=== PATIENT | female | born 2000 | race Caucasian/White ===

== ENCOUNTER 2021-04-21 08:06 | Inpatient (IN) ==
[2021-04-21] MEDS ORDERED: Naloxone 0.4 MG/ML INJ IVP PRN ×2 (08:19→08:48)
[2021-04-21] MEDS ORDERED: Ondansetron 4 MG/2 ML VIAL IVP PRN ×2 (08:19→08:48)
[2021-04-21] MEDS ORDERED: Lidocaine 1% 20 ML MDV ID PRN (08:19)
[2021-04-21] MEDS ORDERED: Metoclopramide 10 MG/2 ML VIAL IVP PRN (08:19)
[2021-04-21] MEDS ORDERED: *HR* Nalbuphine 10 MG/ML AMPUL IV PRN (08:19)
[2021-04-21] MEDS ORDERED: Azithromycin 500 MG in 0.9 % Sodium Chloride 250 ML IVPB ONE (08:19)
[2021-04-21] MEDS ORDERED: Famotidine 20 MG/2 ML VIAL IVP PRN (08:19)
[2021-04-21] MEDS ORDERED: miSOPROStoL 25 MCG TABLET PO PRN (08:19)
[2021-04-21] MEDS ORDERED: Ringers Solution, Lactated 1,000 ML IVC SCH (08:30)
[2021-04-21] MEDS ORDERED: Oxytocin 20 units/ LR 1000 mL 20 UNIT/1,000 ML BAG IVC SCH (08:30)
[2021-04-21] MEDS ORDERED: Ropivacaine/PF 0.2% 20 ML VIAL EP ONE (08:48)
[2021-04-21] MEDS ORDERED: EPHEDrine 50 MG/ML VIAL IVP PRN (08:48)
[2021-04-21] MEDS ORDERED: Epidural Premix (fent/bupiv) 110 ML EP SCH (09:00)
[2021-04-21 09:23] LABS: Basophils % 0.3 %; Eosinophils # 0.2 K/mcL (0.0-0.6); Eosinophils % 1.9 %; Hematocrit 31.9 % (35.3-44.9); Hemoglobin 9.9 g/dL (11.5-15.4); Immature Granulocytes % 0.7 % (0-4); Lymphocytes # 2.1 K/mcL (0.6-4.6); Lymphocytes % 20.4 %; Mean Corpuscular Hemoglobin 26.4 pg (28.0-33.3); Mean Corpuscular Volume 85.1 fL (83.0-100.0); Mean Platelet Volume 9.6 fL (9.4-12.4); Monocytes # 0.7 K/mcL (0.0-1.3); Monocytes % 6.7 %; Neutrophils # 7.3 K/mcL (1.6-8.9); Platelet Count 295 K/mcL (140-400); Red Blood Count 3.75 M/mcL (3.82-4.97); Red Cell Distribution Width 15.6 % (11.5-14.5); White Blood Count 10.4 K/mcL (4.3-11.1)
[2021-04-21 09:29] LABS: Amphetamine Screen,Urine Negative ng/mL (Cutoff=1000); Barbiturate Screen,Urine Negative ng/mL (Cutoff=200); Benzodiazepines Screen,Urine Negative ng/mL (Cutoff=200); Cannabinoid Screen,Urine Negative ng/mL (Cutoff = 50); Cocaine Screen,Urine Negative ng/mL (Cutoff= 300); Opiate Screen,Urine Negative ng/mL (Cutoff=300); Phencyclidine Screen,Urine Negative ng/mL (Cutoff=25)
[2021-04-21 09:52] LABS: Influenza A PCR Negative (Negative); Influenza B PCR Negative (Negative); Resp. Syncytial Virus PCR Negative (Negative)
[2021-04-21 09:53] LABS: SARS-CoV-2 by PCR (In House) Negative (Negative)
[2021-04-21] MEDS ORDERED: Ropivacaine/PF 0.2% 20 ML VIAL ONE (17:46)
[2021-04-21] MEDS ORDERED: Methylergonovine 0.2 MG/ML AMPUL IM ONE (23:21)
[2021-04-22] MEDS ORDERED: Acetaminophen 325 MG TABLET PO PRN (01:33)
[2021-04-22] MEDS ORDERED: Benzocaine/Menthol 56 GM AEROSOL SPRAY TP PRN (01:33)
[2021-04-22] MEDS ORDERED: Oxytocin 20 units/ LR 1000 mL 20 UNIT/1,000 ML BAG IVC SCH (01:33)
[2021-04-22] MEDS ORDERED: Rho Immune Globulin 1,500 UNIT SYRINGE IM PRN (01:33)
[2021-04-22] MEDS: Ibuprofen 600 MG TABLET PO PRN ×3 (01:54→13:52)
[2021-04-22] MEDS ORDERED: Ondansetron ODT 4 MG TAB.RAPDIS SL PRN (01:55)
[2021-04-22 03:43] LABS: Basophils % 0.2 %; Hematocrit 35.3 % (35.3-44.9); Hemoglobin 10.7 g/dL (11.5-15.4); Immature Granulocytes % 0.6 % (0-4); Lymphocytes # 1.3 K/mcL (0.6-4.6); Lymphocytes % 6.6 %; Mean Corpuscular HGB Conc 30.3 g/dL (31.6-35.5); Mean Corpuscular Hemoglobin 26.1 pg (28.0-33.3); Mean Corpuscular Volume 86.1 fL (83.0-100.0); Mean Platelet Volume 9.8 fL (9.4-12.4); Monocytes # 1.1 K/mcL (0.0-1.3); Monocytes % 5.4 %; Neutrophils # 17.2 K/mcL (1.6-8.9); Platelet Count 250 K/mcL (140-400); Red Cell Distribution Width 15.5 % (11.5-14.5); Segmented Neutrophils % 87.2 %
[2021-04-22 03:45] LABS: White Blood Count 19.7 K/mcL (4.3-11.1)
[2021-04-22] MEDS: Prenatal Vit/FA 1 EACH TABLET PO SCH (07:37)
[2021-04-22] MEDS ORDERED: Methylergonovine 0.2 MG/ML AMPUL IM ONE (13:40)
[2021-04-23 07:32] VITALS: BP 113/70
[2021-04-23] MEDS: Prenatal Vit/FA 1 EACH TABLET PO SCH (08:40)
== END 2021-04-23 15:00 | disposition home or self-care (01) | DRG 560 ==
LOC: 1NENULAB 08:06 → 1NENUOBS 04-22 01:34
PROVIDERS: ADMIT Registered Nurse; ATTEND Registered Nurse